=== PATIENT | male | born 1990 | race Two or more races ===

== ENCOUNTER → 2021-04-05 | Emergency (ER) | payer OTHER ==
[~2021-04-05] VITALS: Ht 175.3 cm; Wt 85.3 kg
[~2021-04-05] MED LIST: CIPROFLOXACIN500 MG PO; INTESTINEX680 M1 PO; LEVSIN0.125 MG PO; METRONIDAZOLE500 MG PO; PEPCID AC20 MG PO
== END | disposition home or self-care (01) ==
LOC: ER 21:15
DX: A05.8 Other specified bacterial foodborne intoxications (principal); R19.7 Diarrhea, unspecified; E86.0 Dehydration; R11.2 Nausea with vomiting, unspecified